=== PATIENT | female | born 1995 | race Caucasian/White ===

== ENCOUNTER 2025-02-01 01:29 | Emergency (ER) | payer OTHER, SELFPAY ==
[2025-02-01 02:09] LABS: #Basophils 0.04 10x3/uL (0.0-0.2); #Eosinophils 0.16 10x3/uL (0.0-0.5); #Monocytes 0.85 10x3/uL (0.0-1.1); #Neutrophils 8.66 10x3/uL (1.5-8.4); %Basophils 0.3 % (0.0-2.0); %Eosinophils 1.3 % (0.0-6.0); %Lymphocytes 23.8 % (18.0-47.0); %Monocytes 6.7 % (0.0-10.0); %Neutrophils 67.7 % (40.0-75.0); Glucose, Urine (Dipstick) Normal (Negative); Hematocrit 38.2 % (34.9-44.5); Hemoglobin 13.1 g/dL (12.0-15.5); Leukocyte 25 (Negative); Mean Corpuscular Hemoglobin 29.3 pg (27.0-33.0); Mean Corpuscular Volume 85.5 fL (81.6-98.3); Platelet Count 298 10x3/uL (150-450); Protein, Urine (Dipstick) 30 mg/dl (Neg-Trace); Red Blood Cell (RBC) Count 4.47 10x6/uL (3.90-5.03); Specific Gravity, Urine 1.030 (1.005-1.030); White Blood Cell (WBC) Count 12.78 10x3/uL (3.5-10.5)
[2025-02-01 02:19] LABS: Cocaine Metabolite Screen Negative (Negative); THC/Cannabinoid Screen Negative (Negative); Tricyclic Screen Negative (Negative)
[2025-02-01 02:21] LABS: Acetaminophen Less than 10 mcg/mL (Less than 10); Bacteria/HPF 4+ HPF (None Seen); CAUTI Indications for Culture Pelvic or flank pain; Magnesium 1.8 mg/dL (1.6-2.6); Mucous/LPF 2+ LPF (<2+); RBC/HPF 0-3 HPF (0-3); Salicylate Less than 8.0 mg/dL (Less than 8.0)
[2025-02-01 02:22] LABS: ALT (SGPT) 16 U/L (Less than 34); AST (SGOT) 19 U/L (11-34); Albumin 3.9 g/dL (3.1-4.5); Alkaline Phosphatase 45 U/L (40-110); Anion Gap 12 mmol/L (10-20); BUN (Urea Nitrogen) 12 mg/dL (7.0-18.7); Bilirubin, Total 0.2 mg/dL (0.3-1.2); Calc. Creatinine Clearance 0 mL/min (70-130); Calcium 9.7 mg/dL (7.8-10.44); Carbon Dioxide 21 mmol/L (22-29); Chloride 104 mmol/L (98-107); Globulin 3.4 g/dL (2.4-3.5); Glucose 88 mg/dL (70-105); Potassium 4.0 mmol/L (3.5-5.1); Sodium 133 mmol/L (136-145); Urine Culture Reflex No No
[2025-02-01] MEDS ORDERED: Cephalexin 250 MG CAP ONE (04:23)
== END 2025-02-01 04:40 | disposition home or self-care (01) ==
LOC: CSHERS 01:29
DX: O21.0 Mild hyperemesis gravidarum (principal); O23.40 Unspecified infection of urinary tract in pregnancy, unspecified trimester; N39.0 Urinary tract infection, site not specified; Z3A.08 8 weeks gestation of pregnancy
CPT/HCPCS: 76801; 76856; 80053; 80306; 80307; 81001; 83605; 83735; 84702; 85025; 96374